=== PATIENT | female | born 1985 ===

== ENCOUNTER 2024-01-23 15:22 | Inpatient (IN) ==
[2024-01-23] MEDS: Lactated Ringers 1000 ml BAG 1,000 ML IV SCH ×2 (10:48→16:03)
[2024-01-23] MEDS: Lactated Ringers 1000 ml BAG 1,000 ML IV ONE (15:35)
[2024-01-23 15:59] LABS: Hemoglobin 12.1 g/dL (11.5-14.3); Mean Corpuscular Hemoglobin 31.7 pg (27-33); Mean Corpuscular Hgb Conc 33.8 g/dL (31-36); Mean Corpuscular Volume 93.9 fL (80-97); Mean Platelet Volume 7.7 fL (7.5-11.2); Platelet Count 192 10^3/uL (150-450); Red Blood Count 3.83 10^6/uL (3.63-4.92); Red Cell Distribution Width 12.7 % (12-17); White Blood Count 14.9 10^3/uL (3.8-11.8)
[2024-01-23] MEDS: OBEPIDURAL (200 ML) 200 ML EPIDURAL ONE (16:26)
[2024-01-23] MEDS ORDERED: Phenylephrine 40 mcg/mL 10mL (400mcg) SYRINGE IV PUSH PRN ×2 (16:33)
[2024-01-23] MEDS ORDERED: Sodium Citrate/Citric Acid LIQ 15 ML UDC PO PRN (16:33)
[2024-01-23] MEDS ORDERED: Prochlorperazine 5 mg/ml 2 ml VIAL (10 mg) IV PRN (19:18)
[2024-01-23] MEDS ORDERED: Lidocaine 1% VIAL 10 MG/ML 30 ML VIAL INJ PRN (19:18)
[2024-01-23] MEDS ORDERED: Nalbuphine 10 MG/ML 1 ML VIAL IV PRN (19:18)
[2024-01-23 19:52] LABS: Urine Appearance Clear; Urine Bilirubin Negative (Negative); Urine Blood Negative (Negative); Urine Color Yellow; Urine Glucose Negative (Negative); Urine Ketones 4+ (Negative); Urine Nitrite Negative (Negative); Urine Protein Trace (Negative); Urine Specific Gravity 1.014 (1.002-1.030); Urine Urobilinogen Negative (Negative); Urine pH 5.5 (5.0-8.0)
[2024-01-23 20:12] LABS: Urine Benzodiazepine Screen None Detected (None Detect); Urine Cannabinoids Screen None Detected (None Detect); Urine Opiates Screen None Detected (None Detect)
[2024-01-24] MEDS: Oxytocin in LR 20,000 MILLI.UNIT/1,000 ML BAG IV SCH (02:00)
[2024-01-24] MEDS ORDERED: Glycerin ADULT 2.4 gm SUPP PR PRN (02:42)
[2024-01-24] MEDS ORDERED: Lactated Ringers 1000 ml BAG 1,000 ML IV SCH (03:00)
[2024-01-24] MEDS: Lactated Ringers 1000 ml BAG 1,000 ML IV ONE (04:47)
[2024-01-24] MEDS: OBEPIDURAL (200 ML) 200 ML EPIDURAL SCH (04:47)
[2024-01-24] MEDS: Buffered Lidocaine 1% SYRIN 1 ml INTRADERM ONE (04:47)
[2024-01-24] MEDS: Phenylephrine 40 mcg/mL 10mL (400mcg) SYRINGE ONE (05:05)
[2024-01-24] MEDS: Lidocaine 1.5% EPI 1:200,000 30 ML SDV ONE (05:06)
[2024-01-24] MEDS: Oxytocin in LR 20,000 MILLI.UNIT/1,000 ML BAG IV ONE (09:55)
[2024-01-25 05:40] LABS: ABS Lymphocytes 1.5 10^3/uL (1.0-4.8); ABS Monocytes 0.5 10^3/uL (0.0-0.9); ABS Neutrophils 7.8 10^3/uL (1.5-7.6); Eosinophil % 0.4 %; Hematocrit 22.6 % (35-45); Hemoglobin 8.1 g/dL (11.5-14.3); Lymphocyte % 15.2 %; Mean Corpuscular Hemoglobin 33.6 pg (27-33); Mean Corpuscular Hgb Conc 35.6 g/dL (31-36); Mean Corpuscular Volume 94.4 fL (80-97); Mean Platelet Volume 7.6 fL (7.5-11.2); Platelet Count 117 10^3/uL (150-450); Red Cell Distribution Width 13.2 % (12-17); White Blood Count 9.9 10^3/uL (3.8-11.8)
[2024-01-25 08:24] VITALS: BP 88/53
[2024-01-25] MEDS: Iron Sucrose 200 MG in NS 0.9% 100 ml BAG 100 ML IVPB ONE (10:16)
[2024-01-25] MEDS: Dibucaine 1% OINT 28.35 GM TUBE PR PRN (10:48)
[2024-01-25] MEDS: Witch Hazel PAD JAR TOPICAL PRN (10:48)
== END 2024-01-25 15:38 | disposition home or self-care (01) | DRG 560 ==
LOC: MCHOBOUT 15:22 → MCHOB 15:31
PROVIDERS: ADMIT Obstetrics & Gynecology; ATTEND Midwife